=== PATIENT | female | born 1960 | race Hispanic/Latino ===

== ENCOUNTER → 2020-11-06 | Outpatient (CLI) | payer BC ==
[2020-11-06 11:50] LABS: CREATININE 0.6 mg/dL (0.5-1.5); POTASSIUM 3.8 mmol/L (3.5-5.1)
== END | disposition home or self-care (01) ==
LOC: LAB 10:18
PROVIDERS: ATTEND Obstetrics & Gynecology
DX: Z01.818 Encounter for other preprocedural examination (principal); C54.1 Malignant neoplasm of endometrium
CPT/HCPCS: 36415; 80048; 93005

== ENCOUNTER → 2020-11-10 | Outpatient (CLI) | payer BC ==
[~2020-11-10] MED LIST: IOHEXOL 350 MG/ML 100ML INFUS..BTL IV ONE
== END | disposition home or self-care (01) ==
LOC: RAH 09:00
PROVIDERS: ATTEND Obstetrics & Gynecology
DX: C54.1 Malignant neoplasm of endometrium (principal); R97.0 Elevated carcinoembryonic antigen [CEA]; M54.9 Dorsalgia, unspecified; Z85.42 Personal history of malignant neoplasm of other parts of uterus; Z85.43 Personal history of malignant neoplasm of ovary; R91.1 Solitary pulmonary nodule
CPT/HCPCS: 71260; 74177; Q9967

== ENCOUNTER → 2021-04-03 | Outpatient (CLI) | payer BC | END | disposition home or self-care (01) | LOC: RAH 08:21 | PROVIDERS: ATTEND Obstetrics & Gynecology | DX: Z12.31 Encounter for screening mammogram for malignant neoplasm of breast (principal) | CPT/HCPCS: 77067 ==

== ENCOUNTER 2022-05-03 00:22 | Inpatient (IN) | payer BC ==
[~2022-05-03] VITALS: Ht 162.6 cm; Wt 94.5 kg
[2022-05-03 00:55] LABS: BASOPHILS % (AUTO) 1.1 % (0.0-5.0); HEMATOCRIT 29.4 % (36-48); LYMPHOCYTES % (AUTO) 41.9 % (21.0-51.0); MEAN CORPUSCULAR HEMOGLOBIN 30.2 pg (27.0-33.0); MEAN CORPUSCULAR VOLUME 88.8 fL (79-99); MONOCYTES % (AUTO) 11.9 % (3.0-13.0); NEUTROPHILS % (AUTO) 42.9 % (40.0-77.0); PLATELET COUNT (AUTO) 146 K/uL (130-400); RED BLOOD CELL COUNT(AUTO) 3.31 MIL/uL (4.00-5.50); RED CELL DISTRIBUTION WIDTH 15.2 % (11.0-15.5); WHITE BLOOD COUNT (AUTO) 4.5 K/uL (4.8-10.8)
[2022-05-03 00:58] LABS: APPEARANCE,URINE CLEAR (CLEAR); BILIRUBIN,URINE NEGATIVE (NEGATIVE); GLUCOSE, URINE (UA) NEGATIVE (NEGATIVE); KETONES,URINE NEGATIVE (NEGATIVE); LEUKOCYTE ESTERASE ,URINE NEGATIVE Leu/uL (NEGATIVE); NITRATE,URINE NEGATIVE (NEGATIVE); OCCULT BLOOD,URINE SMALL (NEGATIVE); PROTEIN,URINE NEGATIVE (NEGATIVE); UROBILINOGEN,URINE 0.2 mg/dL (0.2-1.0)
[2022-05-03 01:14] LABS: COLOR,URINE LIGHT-YELLOW (YELLOW)
[2022-05-03 01:15] LABS: SQUAMOUS EPITHELIAL CELL,UR RARE /HPF (0-2)
[2022-05-03 01:16] LABS: ALBUMIN 3.9 g/dL (3.5-5.0); CREATININE 0.7 mg/dL (0.5-1.5); POTASSIUM 3.6 mmol/L (3.5-5.1); TOTAL PROTEIN, SERUM 8.2 g/dL (6.0-8.3)
[2022-05-03 01:24] LABS: B-TYPE NATRIURETIC PEPTIDE 414 pg/mL (0-100)
[2022-05-03] MEDS ORDERED: PHARMACY COMMUNICATION MISC PRN (02:30)
[2022-05-03] MEDS ORDERED: ACETAMINOPHEN 325 MG TAB PO PRN (02:30)
[2022-05-03] MEDS ORDERED: ONDANSETRON 4MG INJ IV PRN (02:30)
[2022-05-03] MEDS ORDERED: POTASSIUM CHLORIDE 20MEQ/100ML 100 ML IV PRN (02:30)
[2022-05-03] MEDS ORDERED: DIAZEPAM 5 MG/ML 2 ML SYG IV PRN (02:30)
[2022-05-03] MEDS ORDERED: MAGNESIUM 2GM PREMIX 50ML 50 ML IV PRN (02:30)
[2022-05-03] MEDS ORDERED: LIDOCAINE HCL-MPF 1% 2ML VIAL IV PRN (02:30)
[2022-05-03] MEDS ORDERED: POTASSIUM CHLORIDE 10% ELIXIR 20 MEQ/15 ML UDCUP PO PRN (02:30)
[2022-05-03] MEDS ORDERED: KCL 20 MEQ ERTAB PO PRN (02:30)
[2022-05-03 02:58] LABS: INR 1.06 (0.85-1.15); MAGNESIUM 1.8 mg/dL (1.80-2.40); PHOSPHORUS 3.7 mg/dL (2.5-4.9); PROTHROMBIN TIME 11.5 SEC (9.6-11.6)
[2022-05-03 03:00] LABS: PARTIAL THROMBOPLASTIN TIME 27.9 SEC (26.3-35.5)
[2022-05-03] MEDS: CHLORDIAZEPOXIDE HCL 25 MG CAP PO SCH ×3 (03:13→18:58)
[2022-05-03] MEDS: SODIUM CHLORIDE 1,000 MG TAB PO SCH ×3 (03:13→20:28)
[2022-05-03] MEDS: FUROSEMIDE 40MG VIAL IVP SCH ×2 (08:10→20:28)
[2022-05-03] MEDS: THIAMINE HCL 100 MG/ML 2ML VIAL IM SCH (08:10)
[2022-05-03] MEDS: FOLIC ACID 1 MG TABLET PO SCH (08:11)
[2022-05-03] MEDS: FAMOTIDINE 20MG VIAL IV SCH (08:11)
[2022-05-03] MEDS: MULTIVITAMIN TABLET PO SCH (08:11)
[2022-05-03] MEDS ORDERED: PREG75CA75 PO (08:21)
[2022-05-03] MEDS ORDERED: ACET-2079 PO (08:21)
[2022-05-03] MEDS ORDERED: METO50TA18 PO (08:21)
[2022-05-03 13:27] LABS: CREATININE 0.8 mg/dL (0.5-1.5); POTASSIUM 3.9 mmol/L (3.5-5.1)
[2022-05-03 15:40] VITALS: BP 159/80
[2022-05-03] MEDS ORDERED: ACETAMINOPHEN WITH CODEINE 1 TAB TAB PO PRN (18:30)
[2022-05-03 20:00] VITALS: BP 163/89
[2022-05-03] MEDS: PREGABALIN 75 MG CAPSULE PO SCH (20:28)
[2022-05-04] VITALS: BP 141/77
[2022-05-04] MEDS: CHLORDIAZEPOXIDE HCL 25 MG CAP PO SCH ×2 (02:05→09:46)
[2022-05-04 03:39] VITALS: BP 149/78
[2022-05-04 03:45] LABS: BASOPHILS % (AUTO) 0.8 % (0.0-5.0); EOSINOPHILS % (AUTO) 0.8 % (0.0-8.0); HEMATOCRIT 26.6 % (36-48); LYMPHOCYTES % (AUTO) 22.7 % (21.0-51.0); MEAN CORPUSCULAR HEMOGLOBIN 30.2 pg (27.0-33.0); MEAN CORPUSCULAR HGB CONC 33.8 g/dL (32.0-36.0); MEAN CORPUSCULAR VOLUME 89.3 fL (79-99); MONOCYTES % (AUTO) 11.3 % (3.0-13.0); NEUTROPHILS % (AUTO) 64.1 % (40.0-77.0); PLATELET COUNT (AUTO) 118 K/uL (130-400); RED BLOOD CELL COUNT(AUTO) 2.98 MIL/uL (4.00-5.50); RED CELL DISTRIBUTION WIDTH 15.6 % (11.0-15.5); WHITE BLOOD COUNT (AUTO) 3.9 K/uL (4.8-10.8)
[2022-05-04 03:49] LABS: CREATININE 0.9 mg/dL (0.5-1.5); MAGNESIUM 2.1 mg/dL (1.80-2.40); POTASSIUM 3.4 mmol/L (3.5-5.1)
[2022-05-04 07:30] VITALS: BP 147/73
[2022-05-04] MEDS ORDERED: METOPROLOL TARTRATE 50 MG TAB PO SCH (07:30)
[2022-05-04] MEDS: THIAMINE HCL 100 MG/ML 2ML VIAL IM SCH (09:45)
[2022-05-04] MEDS: SODIUM CHLORIDE 1,000 MG TAB PO SCH (09:45)
[2022-05-04] MEDS: FOLIC ACID 1 MG TABLET PO SCH (09:45)
[2022-05-04] MEDS: MULTIVITAMIN TABLET PO SCH (09:45)
[2022-05-04] MEDS: FAMOTIDINE 20MG VIAL IV SCH (09:45)
[2022-05-04] MEDS: PREGABALIN 75 MG CAPSULE PO SCH (09:45)
[2022-05-04] MEDS: FUROSEMIDE 40MG VIAL IVP SCH (09:46)
[2022-05-04] MEDS ORDERED: POTASSIUM CHLORIDE 10MEQ SR TAB PO SCH (10:30)
[2022-05-04 11:31] VITALS: BP 151/61
== END 2022-05-04 12:50 | disposition home or self-care (01) | DRG 433 ==
LOC: EDH 00:22 → EDHIP 02:13 → 4BH 15:36
PROVIDERS: ADMIT Hospitalist; ATTEND Hospitalist
DX: K70.31 Alcoholic cirrhosis of liver with ascites (principal); E87.1 Hypo-osmolality and hyponatremia; Z20.822 Contact with and (suspected) exposure to COVID-19; E87.70 Fluid overload, unspecified; F10.129 Alcohol abuse with intoxication, unspecified; E66.9 Obesity, unspecified; E11.9 Type 2 diabetes mellitus without complications; I10 Essential (primary) hypertension; G62.9 Polyneuropathy, unspecified; Z96.653 Presence of artificial knee joint, bilateral; Z68.35 Body mass index [BMI] 35.0-35.9, adult; Z85.43 Personal history of malignant neoplasm of ovary; Z90.710 Acquired absence of both cervix and uterus
CPT/HCPCS: 36415; 71045; 76700; 80048; 80053; 81001; 83735; 83880; 84100; 84484; 85025; 85610; 85730; 86850; 86900; 86901; 87635; 87804; 93005; C9803; G0378; J1940; J3411; J3475; J3490

== ENCOUNTER → 2022-05-31 | Outpatient (CLI) | payer BC ==
[~2022-05-31] MED LIST changes: +ACET-2079 PO; -IOHEXOL 350 MG/ML 100ML INFUS..BTL IV ONE; +METO50TA18 PO; +PREG75CA75 PO
== END | disposition home or self-care (01) ==
LOC: RAH 13:27
PROVIDERS: ATTEND Family Medicine
DX: Z12.31 Encounter for screening mammogram for malignant neoplasm of breast (principal)
CPT/HCPCS: 77067

== ENCOUNTER → 2023-05-06 | Outpatient (CLI) | payer BC ==
[~2023-05-06] MED LIST changes: -PREG75CA75 PO; +PREG75CA76 PO
== END | disposition home or self-care (01) ==
LOC: RAH 14:19
PROVIDERS: ATTEND Internal Medicine Gastroenterology
DX: R06.02 Shortness of breath (principal); M47.815 Spondylosis without myelopathy or radiculopathy, thoracolumbar region
CPT/HCPCS: 71046

== ENCOUNTER → 2023-06-01 | Outpatient (CLI) | payer BC | END | disposition home or self-care (01) | LOC: RAH 08:43 | PROVIDERS: ATTEND Family Medicine | DX: Z12.31 Encounter for screening mammogram for malignant neoplasm of breast (principal) | CPT/HCPCS: 77067 ==